=== PATIENT | male | born 1960 | race African-American/Black ===

== ENCOUNTER → 2018-12-10 11:46 | Outpatient (CLI) | payer BC | END | disposition home or self-care (01) | LOC: D.RAD 11:46 | DX: M25.511 Pain in right shoulder (principal) ==

== ENCOUNTER → 2018-12-23 10:07 | Outpatient (CLI) | payer BC | END | disposition home or self-care (01) | LOC: D.US 12-21 08:00 | DX: N50.811 Right testicular pain (principal) ==

== ENCOUNTER 2019-02-12 10:22 | Emergency (ER) | payer BC ==
[~2019-02-12] VITALS: Ht 182.9 cm; Wt 89.5 kg
[2019-02-12 10:27] VITALS: Ht 182.9 cm; Wt 89.5 kg
[2019-02-12] MEDS ORDERED: PHENERGAN25 M1 (10:30)
[2019-02-12 11:11] LABS: BASOPHILS 0.1 % (0-2); EOSINOPHILS 0.4 % (0-7); HEMATOCRIT 45.3 % (42.0-54.0); HEMOGLOBIN 15.2 g/dL (13.5-17.5); IMMATURE GRANULOCYTES 0.3 % (0-5); LYMPHOCYTES 20.6 % (15-50); MCH 29.1 pg (26.0-34.0); MCHC 33.6 g/dL (31.0-37.0); MCV 86.8 fL (80.0-100.0); MEAN PLATELET VOLUME 10.3 fL (7.4-10.4); MONOCYTES 12.1 % (2-11); NEUTROPHILS 66.5 % (40-80); PLATELET COUNT 124 10x3/uL (130-400); RBC 5.22 10x6/uL (4.20-6.10); RDW 13.1 % (11.5-14.5); WBC 9.5 10x3/uL (4.8-10.8)
[2019-02-12 11:31] LABS: APTT 28.5 SECONDS (22.8-39.4); INR 1.1 (0.85-1.17); PROTIME 13.7 SECONDS (11.6-15.0)
[2019-02-12 12:16] LABS: ALBUMIN 3.9 g/dL (3.4-5.0); ALKALINE PHOSPHATASE 74 U/L (46-116); ALT (SGPT) 133 U/L (10-68); BILIRUBIN - TOTAL 1.01 mg/dL (0.2-1.3); CALC OSMOLALITY 279 mosm/kg (275-300); CALCIUM 9.4 mg/dL (8.5-10.1); CARBON DIOXIDE 29.7 mmol/L (21.0-32.0); CHLORIDE - SERUM 103 mmol/L (98-107); CREATININE - SERUM 1.5 mg/dL (0.6-1.3); GLUCOSE 101 mg/dL (74-106); POTASSIUM - SERUM 3.6 mmol/L (3.5-5.1); PROTEIN - SERUM 8.4 g/dL (6.4-8.2); SODIUM 141 mmol/L (136-145); UREA NITROGEN 11 mg/dL (7-18); eGFR NON AFRICAN AMERICAN 51 mL/min (90-120)
[2019-02-12 12:42] LABS: CKMB 1.2 U/L (0.0-3.6); CREATINE KINASE 333 UL (21-232); MAGNESIUM - SERUM 2.2 mg/dL (1.8-2.4); TROPONIN-I < 0.017 ng/mL (0.000-0.060)
[2019-02-12 12:52] LABS: APPEARANCE CLEAR (CLEAR); BILIRUBIN NEGATIVE (NEGATIVE); COLOR STRAW (YELLOW); GLUCOSE NEGATIVE (NEGATIVE); KETONE NEGATIVE (NEGATIVE); NITRITE NEGATIVE (NEGATIVE); PROTEIN NEGATIVE (NEGATIVE); SPECIFIC GRAVITY 1.005 (1.005-1.020); UROBILINOGEN NORMAL (NORMAL)
[2019-02-12 14:30] VITALS: BP 168/86
== END 2019-02-14 07:00 | disposition other institution (70) ==
LOC: D.ER 10:22
PROVIDERS: Emergency Medicine
DX: I63.9 Cerebral infarction, unspecified (principal); G81.91 Hemiplegia, unspecified affecting right dominant side; R29.810 Facial weakness; I69.393 Ataxia following cerebral infarction

== ENCOUNTER → 2019-06-17 09:41 | Outpatient (CLI) | payer MEDICAID ==
[2019-02-12 10:27] VITALS: BMI 26.7
[~2019-06-17 09:41] MED LIST: PHENERGAN25 M1
== END | disposition home or self-care (01) ==
LOC: D.US 09:41
PROVIDERS: ATTEND Emergency Medicine
DX: R94.5 Abnormal results of liver function studies (principal); Z86.73 Personal history of transient ischemic attack (TIA), and cerebral infarction without residual deficits

== ENCOUNTER 2019-08-04 09:20 | Emergency (ER) | payer MEDICAID ==
[~2019-08-04] VITALS: Ht 182.9 cm; Wt 75.9 kg
[2019-08-04 09:29] VITALS: Ht 182.9 cm; Wt 75.9 kg
[2019-08-04] MEDS ORDERED: LISINOPRIL-HCT1 EAC4 PO (09:32)
[2019-08-04] MEDS ORDERED: KLONOPIN0.5 MG PO (09:32)
[2019-08-04] MEDS ORDERED: PEPCID AC20 MG PO (09:33)
[2019-08-04] MEDS ORDERED: PERCOCET 5-3251 TAB PO (09:33)
[2019-08-04] MEDS ORDERED: ASPIRIN81 MG PO (09:33)
[2019-08-04] MEDS ORDERED: PLAVIX75 MG PO (09:34)
[2019-08-04] MEDS ORDERED: CELEXA20 MG PO (09:34)
[2019-08-04] MEDS ORDERED: ZANAFLEX4 MG PO (09:34)
[2019-08-04] MEDS ORDERED: MECLIZINE HCL25 MG PO (09:35)
[2019-08-04] MEDS ORDERED: BACLOFEN10 MG PO (09:35)
[2019-08-04] MEDS ORDERED: GABAPENTIN100 MG PO (09:36)
[2019-08-04 10:41] LABS: BASOPHILS 0.2 % (0-2); EOSINOPHILS 0.4 % (0-7); HEMATOCRIT 36.1 % (42.0-54.0); IMMATURE GRANULOCYTES 0.2 % (0-5); LYMPHOCYTES 35.6 % (15-50); MCH 28.4 pg (26.0-34.0); MCHC 33.2 g/dL (31.0-37.0); MCV 85.5 fL (80.0-100.0); MEAN PLATELET VOLUME 9.6 fL (7.4-10.4); MONOCYTES 10.7 % (2-11); NEUTROPHILS 52.9 % (40-80); RBC 4.22 10x6/uL (4.20-6.10); RDW 13.7 % (11.5-14.5); WBC 4.8 10x3/uL (4.8-10.8)
[2019-08-04 10:51] LABS: PLATELET COUNT 199 10x3/uL (130-400)
[2019-08-04 10:55] LABS: ALBUMIN 3.5 g/dL (3.4-5.0); BILIRUBIN - TOTAL 0.51 mg/dL (0.2-1.3); CARBON DIOXIDE 30.2 mmol/L (21.0-32.0); CREATININE - SERUM 1.3 mg/dL (0.6-1.3); POTASSIUM - SERUM 4.2 mmol/L (3.5-5.1); PROTEIN - SERUM 6.8 g/dL (6.4-8.2)
[2019-08-04 12:44] VITALS: BP 132/92
== END 2019-08-04 12:45 | disposition home or self-care (01) ==
LOC: D.ER 09:20
PROVIDERS: Emergency Medicine
DX: M62.838 Other muscle spasm (principal); H83.8X9 Other specified diseases of inner ear, unspecified ear